=== PATIENT | male | born 1965 | race Caucasian/White ===

== ENCOUNTER 2022-02-03 10:43 | Emergency (ER) | payer MEDICAID ==
[~2022-02-03] VITALS: Ht 175.3 cm; Wt 62.1 kg
[2022-02-03 10:50] VITALS: BP 106/73
--- NOTE | 2022-02-03 10:55 | NUR ---
PT AMBULATED TO BED 6
--- NOTE | 2022-02-03 11:02 | NUR ---
PT AMBULATED TO RESTROOM
--- NOTE | 2022-02-03 11:05 | NUR ---
PT AMBULATED BACK TO ROOM
[2022-02-03] MEDS ORDERED: KETOROLAC 60 MG/2 ML VIAL IM ONE (11:15)
[2022-02-03] MEDS ORDERED: DICYCLOMINE HCL LIQUID 20 MG, ALUMINUM HYD/MAG/SIMETHICONE 30 ML, LIDOCAINE VISCOUS 2% ... PO ONE ×3 (11:15)
[2022-02-03] MEDS ORDERED: ALUMINUM HYD/MAG/SIMETHICONE 30 ML UDC ONE (11:21)
[2022-02-03] MEDS ORDERED: DICYCLOMINE HCL LIQUID 10 MG/5 ML UDC ONE (11:21)
[2022-02-03 12:46] LABS: ALBUMIN 3.2 g/dL (3.4-5.0); ANION GAP 16.2 (8-16); CARBON DIOXIDE 25.8 mmol/L (21-32); CREATININE 0.8 mg/dL (0.6-1.3); TOTAL BILIRUBIN 0.3 mg/dL (0.0-1.0)
[2022-02-03 12:47] LABS: BASOPHILS % (AUTO) 0.3 % (0.0-2.0); EOSINOPHILS % (AUTO) 0.3 % (0.0-4.0); LYMPHOCYTES # (AUTO) 0.8 K/uL (2.0-11.5); LYMPHOCYTES % (AUTO) 12.1 % (20.5-51.1); MEAN CORPUSCULAR HEMOGLOBIN 24 pg (27-31); MEAN CORPUSCULAR HGB CONC 31 g/dL (33-37); MEAN CORPUSCULAR VOLUME 77.4 fL (80-94); MONOCYTES # (AUTO) 0.4 K/uL (0.8-1.0); MONOCYTES % (AUTO) 6.5 % (1.7-9.3); NEUTROPHILS # (AUTO) 5.5 K/uL (1.8-7.7); NEUTROPHILS % (AUTO) 80.8 % (42.2-75.2); PLATELET COUNT (AUTO) 380 K/uL (140-450); RED BLOOD CELL COUNT(AUTO) 2.59 MIL/uL (4.20-6.10); RED CELL DISTRIBUTION WIDTH 21.1 % (11.6-13.7); WHITE BLOOD COUNT (AUTO) 6.8 K/uL (4.8-10.8)
[2022-02-03 13:04] LABS: HEMOGLOBIN 6.3 g/dL (12.0-18.0)
--- NOTE | 2022-02-03 13:48 | NUR ---
ATTEMPTED TO INSERT IV. PT STATED THAT HE WANTED TO LEAVE. DR LAGUNA MADE AWARE AND IS AT BEDSIDE
--- NOTE | 2022-02-03 13:51 | NUR ---
Patient does not wish to proceed with medical care recommended by LUZ ELENA. Patient given information related to possible complications, up to and including , which could occur as a result of leaving hospital at this time. Patient verbalizes understanding of risks involved leaving against medical advice. Patient has signed AMA form.
[2022-02-03] MEDS ORDERED: FAMO-90 PO (13:53)
--- NOTE | 2022-02-03 13:56 | NUR ---
Patient discharged with v/s stable. Written and verbal after care instructions FOR PEPTIC AND GASTROINTESTINAL BLEEDING given and explained. Patient alert, oriented and verbalized understanding of instructions. Ambulatory with steady gait. All questions addressed prior to discharge. ID band removed. Patient advised to follow up with PMD. Rx of FAMOTODINE given. Opportunity to ask questions provided and answered. PT LEFT AMA BUT DISCHARGE PAPERS WERE GIVEN
--- NOTE | 2022-02-03 14:42 | NUR ---
Note [email or web address] in EDM - 02/03/22 at 1446 by PHSEP Patient discharged with v/s stable. Written and verbal after care instructions FOR PEPTIC AND GASTROINTESTINAL BLEEDING given and explained. Patient alert, oriented and verbalized understanding of instructions. Ambulatory with steady gait. All questions addressed prior to discharge. ID band removed. Patient advised to follow up with PMD. Rx of FAMOTODINE given. Opportunity to ask questions provided and answered. PT LEFT AMA BUT DISCHARGE PAPERS WERE GIVEN
== END 2022-02-03 13:56 | disposition left against medical advice (07) ==
LOC: MED 10:43
DX: K92.2 Gastrointestinal hemorrhage, unspecified (principal); D64.9 Anemia, unspecified; F17.200 Nicotine dependence, unspecified, uncomplicated; Z20.822 Contact with and (suspected) exposure to COVID-19; Z71.6 Tobacco abuse counseling
CPT/HCPCS: 36415; 80053; 83690; 85025; 86886; 86900; 86901; 86920; 87426; 96372; 99283; J1885